=== PATIENT | male | born 2000 | race Caucasian/White ===

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

== ENCOUNTER 2021-04-23 17:40 | Emergency (ER) | payer OTHER ==
[~2021-04-23] VITALS: Ht 177.8 cm; Wt 97.5 kg
[2021-04-23 17:40] VITALS: BP_SYST 137
[2021-04-23 20:35] VITALS: BP_SYST 137
== END 2021-04-23 20:36 | disposition home or self-care (01) ==
LOC: SED 17:40
DX: R00.2 Palpitations (principal); R07.89 Other chest pain; R06.02 Shortness of breath
CPT/HCPCS: 93005; 99283